=== PATIENT | female | born 1990 ===

== ENCOUNTER 2018-07-12 08:35 | Outpatient (CLI) | payer OTHER ==
[~2018-07-12 08:35] MED LIST: FOLIC ACID20 MG PO
== END 2018-07-12 08:48 | disposition home or self-care (01) ==
LOC: TOM 08:35
DX: R10.9 Unspecified abdominal pain (principal); R17 Unspecified jaundice; Z90.81 Acquired absence of spleen; D72.828 Other elevated white blood cell count

== ENCOUNTER 2019-10-03 10:41 | Outpatient (CLI) | payer OTHER | END 2019-10-03 10:56 | disposition home or self-care (01) | LOC: SONOGRAMA 10:41 | DX: R10.2 Pelvic and perineal pain (principal) ==

== ENCOUNTER 2019-10-09 10:19 | Outpatient (CLI) | payer OTHER | END 2019-10-09 10:30 | disposition home or self-care (01) | LOC: SONOGRAMA 10:19 → MAMO-SONO 10:45 | DX: R10.84 Generalized abdominal pain (principal) ==

== ENCOUNTER → 2023-02-19 | Outpatient (CLI) | payer OTHER | END | disposition home or self-care (01) | LOC: SONOGRAMA 08:46 | DX: N92.1 Excessive and frequent menstruation with irregular cycle (principal) ==